=== PATIENT | male | born 1995 | race African-American/Black ===

== ENCOUNTER 2018-04-15 21:53 | Emergency (ER) | payer OTHER ==
[2018-04-15] MEDS ORDERED: PROPARACAINE 0.5% OPHTH DROPS 15 ML RIGHTEYE STA (22:09)
--- NOTE | 2018-04-15 22:26 | ED Physician Documentation ---
PD HPI OPHTHO - Stated complaint Stated Complaint: OIL IN EYE - Chief complaint Chief Complaint: Heent - History obtained from History obtained from: Patient - History of Present Illness Timing - onset: Today Timing - details: Abrupt onset, Now resolved Location: Right Associated symptoms: Redness Contributing factors: Wears contacts, Other (exposed to oil) Similar symptoms before: Has not had sx before Recently seen: Not recently seen - Additional information Additional information: Patient is a 22 year old male with no significant past medical history who is presenting to the emergency department after getting pro lube II in his eye. Patient washed it for 15 minutes. Patient currently denies any complaints but [place]. Review of Systems Ten Systems: 10 systems reviewed and negative Eyes: reports: Irritation. denies: Loss of vision, Decreased vision, Photophobia PD PAST MEDICAL HISTORY - Past Medical History Past Medical History: No - Past Surgical History Past Surgical History: No - Present Medications Home Medications: Ambulatory Orders Medication Instructions Recorded Confirmed No Known Home Medications [No 04/15/18 04/15/18 Known Home Medications] - Allergies Allergies/Adverse Reactions: Allergies Allergy/AdvReac Type Severity Reaction Status Date / Time No Known Drug Allergies Allergy Verified 04/15/18 22:01 - Social History Does the pt smoke?: No Smoking Status: Never smoker Does the pt drink ETOH?: No Does the pt have substance abuse?: No - Immunizations Immunizations are current?: Yes - POLST Patient has POLST: No PD ED PE NORMAL - Vitals Vital signs reviewed: Yes - General General: Alert and oriented X 3 - HEENT HEENT: Atraumatic, PERRL - Cardiac Cardiac: RRR - Respiratory Respiratory: No respiratory distress - Derm Derm: Normal color, Warm and dry - Extremities Extremities: No deformity - Neuro Neuro: Alert and oriented X 3 Results - Vitals Vitals: Vital Signs - 24 hr 04/15/18 04/15/18 21:54 22:30 Temperature 36.6 C 36.6 C Heart Rate 70 72 Respiratory 14 16 Rate Blood Pressure 119/89 H 121/64 O2 Saturation 100 97 Oxygen O2 Source Room air PD MEDICAL DECISION MAKING - ED course Complexity details: reviewed old records, reviewed results, re-evaluated patient , considered differential, d/w patient ED course: Patient was seen and examined at bedside. patient had no current complaints and there was no corneal abrasion when viewed with fluorescein. Patient required no further testing at this time and was stable for discharge with outpatient follow up. - Sepsis Event Vital Signs: Vital Signs - 24 hr 04/15/18 04/15/18 21:54 22:30 Temperature 36.6 C 36.6 C Heart Rate 70 72 Respiratory 14 16 Rate Blood Pressure 119/89 H 121/64 O2 Saturation 100 97 Oxygen O2 Source Room air Departure - Departure Disposition: 01 Home, Self Care Clinical Impression: Eye irritation Condition: Good Instructions: Protection Eye Work Types Eyewear Follow-Up: primary,care provider [Other] - As Needed Comments: Your diagnostics today were within normal limits. there was no abrasion. You should not wear your contact lenses for the next two weeks. you should follow up with your doctor if your symptoms persist. You may return to the emergency department at any time for new, worsening or uncontrollable symptoms. Discharge Date/Time: 04/15/18 22:30
[2018-04-15 22:34] VITALS: BP 121/64
== END 2018-04-15 22:30 | disposition home or self-care (01) ==
LOC: ED 21:53
DX: T15.90XA Foreign body on external eye, part unspecified, unspecified eye, initial encounter (principal); H57.8 Other specified disorders of eye and adnexa; Y99.1 Military activity; Y92.139 Unspecified place military base as the place of occurrence of the external cause
CPT/HCPCS: 99283; J3490

== ENCOUNTER 2018-07-19 09:45 | Emergency (ER) | payer OTHER ==
--- NOTE | 2018-07-19 11:11 | XRAY Report ---
Reason: left great toe injury Procedure Date: 07/19/2018 Accession Number: [id number] / [id number] Procedure: XR - Toe(s) LT CPT Code: FULL RESULT: EXAM: LEFT GREAT TOE RADIOGRAPHY EXAM DATE: 07/19/2018 10:45 AM. CLINICAL HISTORY: Left great toe pain after injury--stepped on by a cleat one day ago. COMPARISON: None. TECHNIQUE: 3 views. FINDINGS: Bones: Normal. No fracture or bone lesion. Joints: Normal. No subluxations. Soft Tissues: Normal. No soft tissue swelling. IMPRESSION: Normal left great toe radiography. RADIA
--- NOTE | 2018-07-19 11:17 | ED Physician Documentation ---
PD HPI LOWER EXT INJURY - Stated complaint Stated Complaint: LEFT BIG TOE - Chief complaint Chief Complaint: Ext Problem - History obtained from History obtained from: Patient - History of Present Illness PD HPI LOW EXT INJURY LOCATION: Left, Toe (great) Type of injury: Blunt / blow Where injury occurred: [place] Timing - onset: Yesterday Timing - duration: Days (1) Timing - details: Abrupt onset, Still present Improved by: Rest, Immobilization Worsened by: Moving, Palpating Associated symptoms: Swelling, Discolored. 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 The patient has noted blood on his sock and found his great toe was bleeding. 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 Review of Systems Constitutional: denies: Fever Nose: denies: Congestion Respiratory: denies: Cough GI: denies: Vomiting PD PAST MEDICAL HISTORY - Past Medical History Past Medical History: No - Past Surgical History Past Surgical History: No - Present Medications Home Medications: Ambulatory Orders Medication Instructions Recorded Confirmed No Known Home Medications 04/15/18 04/15/18 - Allergies Allergies/Adverse Reactions: Allergies Allergy/AdvReac Type Severity Reaction Status Date / Time No Known Drug Allergies Allergy Verified 04/15/18 22:01 - Social History Does the pt smoke?: No Smoking Status: Never smoker Does the pt drink ETOH?: No Does the pt have substance abuse?: No - Immunizations Immunizations are current?: Yes - POLST Patient has POLST: No PD ED PE NORMAL - Vitals Vital signs reviewed: Yes (normal ) - General General: Alert and oriented X 3, No acute distress, Well developed/nourished - HEENT HEENT: Atraumatic, PERRL, EOMI - Respiratory Respiratory: No respiratory distress - Derm Derm: Normal color, Warm and dry, No rash - Extremities Extremities: No deformity, No edema, Other (There is swelling, tenderness and ecchymosis to the left great toe nail. There is no obvious subungal hematoma. There is fresh bleeding from under the nail. ) - Neuro Neuro: Alert and oriented X 3, certified cytotechnologist 2-12 intact, No motor deficit, No sensory deficit, Normal speech Eye Opening: Spontaneous Motor: Obeys Commands Verbal: Oriented GCS Score: 15 - Psych Psych: Normal mood, Normal affect Results - Vitals Vitals: Vital Signs - 24 hr 07/19/18 09:55 Temperature 36.1 C L Heart Rate 75 Respiratory 16 Rate Blood Pressure 125/69 O2 Saturation 99 Oxygen O2 Source Room air - Rads (name of study) foot left Radiology: Prelim report reviewed (Impression: normal L great toe radiology), EMP read indepedently, See rad report PD MEDICAL DECISION MAKING - ED course Complexity details: reviewed results, re-evaluated patient, considered differential, d/w patient ED course: 22 y/o male with a left great toe contusion without evidence of fracture. Conservative treatment is indicated and he is given a metatarsal padding for his shoe and a note for work for 3 days. - Sepsis Event Vital Signs: Vital Signs - 24 hr 07/19/18 09:55 Temperature 36.1 C L Heart Rate 75 Respiratory 16 Rate Blood Pressure 125/69 O2 Saturation 99 Oxygen O2 Source Room air Departure - Departure Disposition: 01 Home, Self Care Clinical Impression: Contusion of toe of left foot Qualifiers: Encounter type: initial encounter Toe: great toe Damage to nail status: with damage Qualified Code(s): S90.212A - Contusion of left great toe with damage to nail, initial encounter Condition: Stable Instructions: ED Contusion Lower Ext Follow-Up: MARYCRU[facility] De Guzman [Provider Group] Forms: Activity restrictions
[2018-07-19 11:31] VITALS: BP 114/85
[2018-07-19] MEDS ORDERED: BACITRACIN OINT TOP ONE (11:33)
== END 2018-07-19 11:36 | disposition home or self-care (01) ==
LOC: ED 09:45
DX: S90.212A Contusion of left great toe with damage to nail, initial encounter (principal); W50.0XXA Accidental hit or strike by another person, initial encounter; Y93.61 Activity, american tackle football; Y92.830 Public park as the place of occurrence of the external cause
CPT/HCPCS: 73660; 99282; 99283; A9270

== ENCOUNTER 2018-08-28 19:29 | Emergency (ER) | payer OTHER ==
[2018-08-28 19:37] VITALS: BP 139/76
--- NOTE | 2018-08-28 20:38 | XRAY Report ---
Reason: sport's injury Procedure Date: 08/28/2018 Accession Number: [id number] / [id number] Procedure: XR - Hand 3 View LT CPT Code: FULL RESULT: EXAM: LEFT HAND RADIOGRAPHY. EXAM DATE: 08/28/2018 08:17 PM. CLINICAL HISTORY: Football injury. Left second digit pain. COMPARISON: None. TECHNIQUE: 3 views. FINDINGS: Bones: Acute oblique fracture involving the distal two thirds second middle phalanx without involvement of the distal articulating cortex, 1 mm offset, close apposition, without angulation. Joints: Normal. No subluxations. Soft Tissues: Mild edema at the fracture site. IMPRESSION: Second middle phalangeal fracture. RADIA
--- NOTE | 2018-08-28 21:15 | ED Physician Documentation ---
PD HPI UPPER EXT INJURY - Stated complaint Stated Complaint: FINGER INJURY - Chief complaint Chief Complaint: Trauma Ext - History obtained from History obtained from: Patient - History of Present Illness Location: Left, Finger Type of injury: Blunt / blow (he slid and fell to ground playing football, and felt that his finger went acute angle, and it seemed deformed to him. He did manipulate it with other hand and is straighter.) Review of Systems Skin: denies: Abrasion (s), Laceration (s) Neurologic: denies: Focal weakness, Numbness PD PAST MEDICAL HISTORY - Past Medical History Past Medical History: Yes Cardiovascular: None Respiratory: Asthma Neuro: None Endocrine/Autoimmune: None GI: None : None HEENT: None Psych: None Musculoskeletal: None Derm: None - Past Surgical History Past Surgical History: No - Present Medications Home Medications: Ambulatory Orders Medication Instructions Recorded Confirmed No Known Home Medications 04/15/18 08/28/18 - Allergies Allergies/Adverse Reactions: Allergies Allergy/AdvReac Type Severity Reaction Status Date / Time No Known Drug Allergies Allergy Verified 08/28/18 19:37 - Social History Does the pt smoke?: No Smoking Status: Never smoker Does the pt drink ETOH?: No Does the pt have substance abuse?: No - Immunizations Immunizations are current?: Yes - POLST Patient has POLST: No PD ED PE NORMAL - Vitals Vital signs reviewed: Yes - General General: Alert and oriented X 3, No acute distress, Well developed/nourished - HEENT HEENT: Atraumatic - Derm Derm: Normal color, Warm and dry - Extremities Extremities: Other (left index finger with tenderness at middle phalanx. No deformity nor angulation. He can flex and extend at DIP joint, though hurts. Normal color and cap refill in finger tip. ) Results - Vitals Vitals: Oxygen O2 Source Room air - Rads (name of study) left index finger Radiology: Prelim report reviewed, EMP read contemporaneously (fracture of middle phalanx shaft, oblique, nonarticular. nondisplaced. ) PD MEDICAL DECISION MAKING - ED course Complexity details: reviewed results, considered differential (fracture vs dislocation), d/w patient Departure - Departure Disposition: 01 Home, Self Care Clinical Impression: Finger fracture, left Qualifiers: Encounter type: initial encounter Finger: index finger Fracture type: closed Phalanx: middle Fracture alignment: nondisplaced Qualified Code(s): S62.651A - Nondisplaced fracture of middle phalanx of left index finger, initial encounter for closed fracture Condition: Stable Record reviewed to determine appropriate education?: Yes Instructions: ED Fx Finger Closed Follow-Up: [facility]ARYCRU[facility] De Guzman [Provider Group] Comments: Finger splint for 3-4 weeks. It is okay to remove it briefly for cleaning the finger and such and then re-tape it. Minimal use of the left hand for the first week or so until follow-up. Follow-up with your primary care or orthopedics early next week, call tomorrow for an appointment. Ibuprofen or Aleve if needed for pains. Add Tylenol if needed. Forms: Activity restrictions Discharge Date/Time: 08/28/18 22:07
[2018-08-28] MEDS ORDERED: IBUPROFEN 600 MG TABLET PO STA (21:40)
[2018-08-28] MEDS ORDERED: HYDROcod/ACET 5/325 Prepack 4 PO STA (21:40)
[2018-08-28] MEDS ORDERED: ACETAMINOPHEN 325 MG TABLET PO STA (21:40)
== END 2018-08-28 22:07 | disposition home or self-care (01) ==
LOC: ED 19:29
DX: S62.651A Nondisplaced fracture of middle phalanx of left index finger, initial encounter for closed fracture (principal); W19.XXXA Unspecified fall, initial encounter; Y93.61 Activity, american tackle football
CPT/HCPCS: 73130; 99282; 99283; A9270

== ENCOUNTER 2018-09-03 14:07 | Day surgery (SDC) | payer OTHER ==
[~2018-09-03 14:07] MED LIST: BUPIVACAINE 0.25% PF 30 ML VIAL ONE
[2018-09-03] MEDS ORDERED: LACTATED RINGERS 1,000 ML IV ONE (14:15)
--- NOTE | 2018-09-03 14:37 | ANESTHESIA ---
Pre-Anesthesia VS, & Labs - Diagnosis L index finger fx - Procedure Perc pinning 2nd finger@L Vital Signs: Temp Pulse Resp BP Pulse Ox 36.6 C 61 16 153/67 H 100 09/03/18 14:16 09/03/18 14:16 09/03/18 14:16 09/03/18 14:16 09/03/18 14:16 Height 5 ft 8 in Weight (kg) 96 kg Body Mass Index 31.9 - NPO Other Last Fluid Intake: Gatorade @1430 Home Medications and Allergies Home Medications: Ambulatory Orders Ibuprofen [Motrin] 800 mg PO Q8H PRN 09/02/18 Ibuprofen [Motrin] 800 mg PO Q8H PRN 09/02/18 Allergies/Adverse Reactions: Allergies Allergy/AdvReac Type Severity Reaction Status Date / Time No Known Drug Allergies Allergy Verified 09/02/18 16:24 Anes History & Medical History - Medical History Cardiovascular: reports: None Pulmonary: reports: Asthma Gastrointestinal: reports: None Urinary: reports: None Neuro: reports: None Musculoskeletal: reports: Other Endocrine/Autoimmune: reports: None Blood Disorders: reports: None Skin: reports: None Smoking Status: Never smoker Exam General: Alert, Oriented x3, Cooperative Dental: WNL Mouth Opening: Greater than 4 Fingerbreadths Neck Mobility: Normal Mallampati classification: I Thyromental Distance: greater than 6 cm Respiratory: Normal breath sounds Cardiovascular: Regular rate Neurological: Normal speech Mental/Cognitive Status: Alert/Oriented X3 Cognitive Status: Within normal limits Plan Anesthesia Type: MAC, Other Block (planning for digital block @2nd finger) Consent for Procedure(s) Verified and Reviewed: Yes Code Status: Attempt Resuscitation ASA classification: 1-Healthy patient Is this case an emergency?: No
[2018-09-03] MEDS ORDERED: LIDOCAINE 1% 50 ML MDV ONE (15:22)
[2018-09-03] MEDS ORDERED: LIDOCAINE 1% 50 ML MDV SUBQ ONE (15:37)
[2018-09-03] MEDS ORDERED: BUPIVACAINE 0.25% PF 30 ML VIAL SUBQ ONE (15:37)
[2018-09-03] MEDS ORDERED: oxyCODONE 5 MG TABLET PO PRN (16:20)
[2018-09-03] MEDS ORDERED: ONDANSETRON 4 MG/2 ML VIAL IVP PRN (16:20)
--- NOTE | 2018-09-03 16:28 | OPERATIVE REPORT ---
Operative Report - General Procedure Date: 09/03/18 Planned Procedure: Closed reduction percutaneous fixation of left index finger P2 fracture Pre-Op Diagnosis: Left index finger P2 fracture Procedure Performed: Closed reduction percutaneous fixation of left index P2 fracture Post Op Diagnosis: Same as above - Procedure Note Primary Surgeon: Kwasi Lindsay Secondary Surgeon: Chelsey Chin Estimated Blood Loss (mL): 0 Complications: none - Other Other Information/Narrative: INDICATION FOR SURGERY: This is a 22-year-old male who was 6 days ago sustained the above fracture while playing flag football. He was treated with a splint. He had rotational deformity in clinic as well as shortening and angular deformity. He was indicated for surgery to correct his rotational deformity and angular deformity. The risks, benefits, and alternatives were discussed. Risks included pain, bleeding, infection, damage to nearby structures, lack of symptom relief, implant complications, stiffness, need for further surgeries, DVT, PE, stroke, and even . He signed a written consent form. PROCEDURE IN DETAIL: The patient was met in the preoperative holding on the day of the procedure. Operative extremity was signed. Consent was verified. He desired to proceed. He was brought to the operating room and surrendered to anesthesia. Sedation was given. He was then prepped and draped in the standard sterile fashion. A surgical timeout was held to confirm the patient procedure, identity, procedure, laterality, allergies, images, and antibiotics. All were in agreement we proceeded. 9 cc of a 50-50 mixture of quarter percent Marcaine plain and 1% lidocaine plain were instilled as a digital block. Fluoroscopy was brought in and we took pictures to better identify the fracture pattern. I then used a towel clamp to progressive die maker the distal phalanx and correct his rotational and length deformity. Once he was out to length and rotationally correct a ywspy-[id number]-sjnmy clamp was placed at the fracture site perpendicular to the fracture site and held the reduction in place. I then placed 0.35 K wires parallel to the fracture with excellent spread and excellent purchase. There was found to have some comminution distally at the volar aspect of the fracture site and this was avoided. Biplanar x-rays confirmed reduction in the clinically the rotational deformity had been resolved. The clamp was removed and the fracture was held in place by the pins. The pins were then bent and Zacarias balls were applied. Final x-rays were obtained. Xeroform was placed around the pins and a splint was applied. He was transferred to the recovery room
[2018-09-03 16:29] VITALS: BP 136/82
== END 2018-09-03 14:08 | disposition home or self-care (01) ==
LOC: SDS 14:07
PROVIDERS: ATTEND Orthopaedic Surgery
PROC: 0PSV34Z Reposition Left Finger Phalanx with Internal Fixation Device, Percutaneous Approach (ICD-10-PCS; principal; 2018-09-03 15:00)
DX: S62.621A Displaced fracture of middle phalanx of left index finger, initial encounter for closed fracture (principal)
CPT/HCPCS: 26727; C1713; J7120